=== PATIENT | female | born 1995 | race African-American/Black ===

== ENCOUNTER 2018-04-27 23:30 | Emergency (ER) | payer MEDICAID ==
[~2018-04-27] VITALS: Ht 160 cm; Wt 54.0 kg
[2018-04-27 23:48] VITALS: BP 110/63
--- NOTE | 2018-04-28 00:11 | Emergency Room Report ---
History of Present Illness General Chief Complaint: Female Urogenital Problems Source: Patient Present Illness HPI 23-year-old female presents to the ER because her partner said she was exposed to gonorrhea. Patient has no complaints, and she reports she was appears to test for HIV and syphilis, and only comes because her partner told her that she should get treated for the swell. She understands that she is to avoid intercourse until she gets tested for cure and that he needs to be tested for care as well. Allergies: Coded Allergies: No Known Allergies (Unverified , 04/27/18) Patient History Past Medical History: see triage record Last Menstrual Period: 04/12/18 Now: No Reviewed Nursing Documentation: PMH: Agreed; PSxH: Agreed Nursing Documentation-PMH Past Medical History: No Stated History Review of Systems All Other Systems: negative except mentioned in HPI Physical Exam Vital Signs Date Time Temp Pulse Resp B/P (MAP) Pulse Ox O2 Delivery O2 Flow Rate FiO2 04/27/18 23:46 98.2 64 16 110/63 97 Room Air 98.2 Sp02 EP Interpretation: reviewed, normal General Appearance: no apparent distress, alert, non-toxic Head: normocephalic Eyes: bilateral eye normal inspection, bilateral eye PERRL, bilateral eye EOMI ENT: normal ENT inspection, hearing grossly normal, normal pharynx, no angioedema, normal voice, moist mucus membranes Neck: normal inspection, full range of motion, supple, supple/symm/no masses Respiratory: chest non-tender, lungs clear, normal breath sounds, chest symmetrical, palpation of chest normal Cardiovascular #1: normal peripheral pulses, regular rate, rhythm Cardiovascular #2: 2+ radial (R), 2+ radial (L) Gastrointestinal: normal inspection, non tender, soft, no mass, no guarding, no rebound Rectal: deferred Genitourinary: normal inspection, no CVA tenderness Musculoskeletal: back normal, gait/station normal, normal range of motion, non- tender Neurologic: alert, responsive, nail artist III-XII nml as tested, motor strength/tone normal, sensory intact, speech normal Psychiatric: judgement/insight normal, memory normal, mood/affect normal Skin: normal color, no rash, warm/dry, normal turgor Lymphatic: no adenopathy Medical Decision Making Diagnostic Impression: Primary Impression: STI (sexually transmitted infection) ER Course Patient given Rocephin and azithromycin, recommendations for follow-up as well as recreational partner to follow-up Last Vital Signs Date Time Temp Pulse Resp B/P (MAP) Pulse Ox O2 Delivery O2 Flow Rate FiO2 04/27/18 23:46 98.2 64 16 110/63 97 Room Air 98.2 Status: improved Disposition: HOME, SELF-CARE Condition: Stable JOSE F MOHR M.D Apr 28, 2018 00:11
[2018-04-28] MEDS ORDERED: Lidocaine 1% MPF 10mg/ml 5ml INJ ONE (00:15)
[2018-04-28] MEDS ORDERED: Azithromycin 250mg tab ORAL ONE (00:15)
[2018-04-28 00:17] VITALS: BP 0/0
== END 2018-04-28 00:17 | disposition home or self-care (01) ==
LOC: EMR 04-28 00:17
DX: Z20.2 Contact with and (suspected) exposure to infections with a predominantly sexual mode of transmission (principal); A54.9 Gonococcal infection, unspecified
CPT/HCPCS: 96372; 99283; J0696; Q0144